=== PATIENT | male | born 2000 | race Caucasian/White ===

== ENCOUNTER 2024-03-16 13:51 | Outpatient (CLI) | payer BC | END 2024-03-16 13:52 | disposition home or self-care (01) | LOC: CSHCP 13:51 | PROVIDERS: ATTEND Student in an Organized Health Care Education/Training Program | DX: R06.2 Wheezing (principal) | CPT/HCPCS: 94010; 94726; 94729; 94760 ==

== ENCOUNTER 2025-02-08 08:36 | Outpatient (CLI) | payer OTHER | END 2025-02-08 08:37 | disposition home or self-care (01) | LOC: CSHSLEEP 08:36 | PROVIDERS: ATTEND Family Medicine | DX: G47.33 Obstructive sleep apnea (adult) (pediatric) (principal); R53.83 Other fatigue; R51.9 Headache, unspecified; R06.83 Snoring | CPT/HCPCS: 95800 ==